=== PATIENT | male | born 1985 ===

== ENCOUNTER → 2017-12-30 | Outpatient (CLI) | payer OTHER ==
[2017-12-31 19:33] LABS: HCV Non Reactive (NR)
== END ==
LOC: LAB EV 18:19 → LAB SHORT 18:19
PROVIDERS: Family Medicine
DX: Z20.9 Contact with and (suspected) exposure to unspecified communicable disease (principal)
CPT/HCPCS: 84460; 86706; 86803; 87340; 87389